=== PATIENT | female | born 1990 | race Caucasian/White ===

== ENCOUNTER 2018-06-11 22:36 | Emergency (ER) | payer SELFPAY ==
[2018-06-11 23:05] VITALS: BMI 23.8
[2018-06-11 23:08] VITALS: TEMP 98.5
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
[2018-06-12 02:09] VITALS: BP 120/80; PULSE 72; RESP 19; O2SAT 99
--- NOTE | 2018-06-12 09:15 | CARD ---
APPROVED REPORT Date of service: 06/12/2018 EKG Measurement Heart [id number] <Conclusion> Normal sinus rhythm Normal ECG
== END 2018-06-12 02:05 | disposition left against medical advice (07) ==
LOC: ED 22:36
DX: M54.2 Cervicalgia (principal); M25.50 Pain in unspecified joint